=== PATIENT | female | born 1935 | race Caucasian/White ===

== ENCOUNTER 2016-04-20 17:59 | Emergency (ER) | payer MEDICARE, OTHER ==
[~2016-04-20 17:59] MED LIST: ACETAMINOPHEN325 MG PO; BACLOFEN10 MG PO; CARDIZEM LA360 MG PO; CLARITIN10 MG PO; COUMADIN4 MG PO; DIGOXIN125 MCG PO; GLUCOPHAGE1000 MG PO; GLUCOTROL10 MG PO; HYDROCODON-ACE1 EAC6 PO; LEVEMIR100 UNIT/1 SQ; LISINOPRIL20 MG PO; MECLIZINE HCL25 MG PO; MEGESTROL ACETA40 MG PO; TOPROL XL200 MG PO
== END 2016-04-20 21:10 | disposition home or self-care (01) ==
LOC: ER 17:59
DX: L72.0 Epidermal cyst (principal); I48.91 Unspecified atrial fibrillation; Z88.1 Allergy status to other antibiotic agents; Z88.8 Allergy status to other drugs, medicaments and biological substances; Z79.899 Other long term (current) drug therapy; Z79.4 Long term (current) use of insulin